=== PATIENT | male | born 1960 | race Caucasian/White ===

== ENCOUNTER 2016-08-24 18:27 | Emergency (ER) | payer OTHER ==
[2016-08-24] MEDS ORDERED: HYDROmorphone 2 MG/1 ML ONE (18:45)
[2016-08-24] MEDS ORDERED: HYDROmorphone 2 MG/1 ML IVP ONE (18:47)
[2016-08-24] MEDS ORDERED: Sodium Chloride 0.9% 1,000 ML PRIMARY IV ONE (18:48)
[2016-08-24] MEDS ORDERED: ONDANSETRON 4 MG/2 ML VIAL IVP ONE (18:52)
[2016-08-24] MEDS ORDERED: MIDAZOLAM 5 MG/1 ML IVP ONE (18:58)
--- NOTE | 2016-08-24 20:55 | DI ---
XR SHOULDER MIN 2VW,08/24/2016 6:36 PM: Clinical History: Left shoulder injury. Previous Exam: None at this facility. Findings: 2 views of the left shoulder are obtained, and demonstrate an anterior dislocation of the left glenoh umeral joint. The humeral head lies anterior inferior to the left glenoid. The adjacent left lung and chest wall are unremarkable. Impression: Anterior dislocation of the left glenohumeral joint.
--- NOTE | 2016-08-24 20:59 | DI ---
XR SHOULDER 1VW,08/24/2016 7:02 PM: Clinical History: Status post left shoulder reduction. Previous Exam: None at this facility. Findings: A single anterior view of the left shoulder is obtained, and demonstrates anatomic alignment. There i s no definite fracture identified however, there is some irregularity of the inferior margin of the l eft glenoid. Impression: 1. Anatomic reduction. 2. Possible fracture of the inferior glenoid would be consistent with a Bankart lesion.
[2016-08-24 21:09] VITALS: TEMP 96.9
[2016-08-24 21:26] VITALS: RESP 16
--- NOTE | 2016-08-25 00:33 | PDOC ---
Shoulder Injury/Pain HPI - General Chief Complaint: Upper Extremity Problem/Injury Stated Complaint: POSSIBLE DISLOCATED LEFT SHOULDER Date Seen by Provider: 08/24/16 Time Seen by Provider: 18:30 Source: POSITIVE: Patient Exam Limitations: POSITIVE: No limitations Nurse's Notes Reviewed & Considered: Yes - History of Present Illness Initial Comments: The patient is a 56-year-old male. 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 He has since had pain to his left shoulder. Patient states he has had a rotator cuff surgery to his right shoulder in the past. No paresthesias or sensory, motor or vascular symptoms. He denies any other injury. Have you received a tetanus shot in the past 10 years?: Yes Location: Left Shoulder Timing: REPORTS: Abrupt Duration: 1 hour Severity: Moderate Quality: REPORTS: "Pain" Context: REPORTS: Fall Associated Symptoms: REPORTS: Unable to Move Shoulder (Due to pain). DENIES: Weakness, Bruising, Not Using Arm, Tingling, Numbness, Other Any Prior Injuries Related to Current Complaint?: No - Patient Home Medications Home Medications: Home Medications Hydrocodone Bit/Acetaminophen [[place] 10-325 Tablet] 1 tab PO Q6H PRN #15 tab 11/05 - Patient Allergies Allergies/Adverse Reactions: Allergies Allergy/AdvReac Type Severity Reaction Status Date / Time No Known Allergies Allergy Verified 08/24/16 18:35 Past Medical History - heen HEENT History: Denies History Cardiovascular History: Hypertension Respiratory History: Other (please comment) Additional Respiratory History: Hx of exterminator termite smoker. Gastrointestinal History: Other (please comment) Additional Gastrointestinal History: Hx of hernia repair as a child--pt. states he doesnt remember where the hernia was at he just remembers have a hernia repair. Genitourinary History: Denies History Endocrine History: Denies History Musculoskeletal History: Back Pain, Other (please comment) Additional Musculoskeletal History: Hx several orthopaedic repairs: Bilateral knee repairs--no hardware. Right shoulder repair--no hardware. Left forearm repair--hardware required however removed at a later date. Back pain from back injury. Neurological History: Denies History Blood Disorders: Denies History Psychiatric History: Denies History Male Reproductive History: Denies History In Past Year Been Physically Harmed or Verbally Threatened: No History of MDRO: Unknown Tobacco Use: Current Every Day Smoker Alcohol Use: Occasionally Substance Use Type: None Previous Surgical History: Yes Type / Date of Surgery: See above Past Medical History Reviewed: Reviewed - No Changes ROS - Limitations ROS Limitations: No Limitations Constitution: REPORTS: Denies Symptoms Cardiovascular: REPORTS: Denies Cardiac Symptoms Respiratory: REPORTS: Denies Resp Symptoms Neurological: REPORTS: Denies Neuro Symptoms Gastrointestinal: REPORTS: Denies GI Symptoms Musculoskeletal: REPORTS: Joint Pain (Left shoulder), Recent Injury (As above) Genitourinary: REPORTS: Denies Symptoms Eyes: REPORTS: Denies Symptoms ENT: REPORTS: Denies Symptoms Skin: REPORTS: Denies Skin Symptoms Lympathic: REPORTS: Denies Lympathic Symptoms Immunologic: POSITIVE: Denies Symptoms Psychiatric: POSITIVE: Denies Psych Symptoms Shoulder Injury/Pain Exam - General Appearance General Appearance: POSITIVE: Alert, Cooperative, No Acute Distress. NEGATIVE: No Evidence of Trauma (Deformity left shoulder with loss of deltoid prominence) - Upper Extremity Shoulder: POSITIVE: Soft-Tissue Tenderness, Bony Tenderness, Anterior Fullness, Limited ROM, Held in Adduction, See Diagram. NEGATIVE: Swelling, Ecchymosis, Clavicular Deformity, AC Drop-Off Upper Extremity: POSITIVE: Uninjured Below Shoulder Neuro/Vascular: POSITIVE: Sensation Normal, Motor Normal, No Vascular Compromise Skin: POSITIVE: Warm, Dry - HEENT HEENT: POSITIVE: Head Inspection Nml, Eyes Inspection Nml, Ears Inspection Nml, Nose Inspection Nml, Oral/Dental Inspect. Nml, Pharynx Inspect. Nml, PERRL, EOMI - Neck / Back Neck/Back: POSITIVE: Normal Inspection, Non-Tender, Painless ROM - Respiratory / CVS Respiratory / CVS: POSITIVE: Chest Non Tender, No Ecchymosis, Breath Sounds Normal, No Respiratory Distress, Heart Sounds Normal, Regular Rate/Rhythm Peripheral Pulses: Radial (R): 2+, Radial (L): 2+ - Abdomen Abdomen: Soft: (All Quadrants), Normal Bowel Sounds: (All Quadrants), Denies Tenderness: (All Quadrants), No Splenomegaly: (All Quadrants), No Hepatomegaly: (All Quadrants), No Guarding: (All Quadrants), No Rebound: (All Quadrants), No Palpable Pulse: (All Quadrants), No Palpabale Mass: (All Quadrants), No Distention: (All Quadrants), No Rigidity: (All Quadrants) Procedure - Procedure Sedation 's Name: Geoffrey Terrazzo Finisher Applied: Yes Rhythm: Sinus Rhythm Oxygen Delivery Method: Nasal Cannula Oxygen Flow Rate: 4 Continuous Pulse Ox: Yes Patent IV Line (s): Yes Patient Tolerated Procedure: Good Comment: Left anterior glenohumeral shoulder dislocation reduced under conscious sedation. Patient placed on vein access technician and had a good patent IV. Supplemental oxygen with nasal cannula applied. Patient given 2 mg of Dilaudid IV followed by 2 mg of Versed IV. Patient achieved good sedation and muscle relaxation and the shoulder dislocation was easily reduced on first attempt. Post reduction shoulder x-ray verified good reduction. Possible Bankart lesion. Shoulder immobilizer placed. - Reduction Time of Reduction: 18:50 Location of Reduction:: Left shoulder, anterior glenohumeral dislocation. Pre-Proc Neuro Vasc Exam: Normal Conscious Sedation: Yes (see conscious sedation note) Method of Reduction: POSITIVE: Manipulation Reduction Attempts: 1 Post Joint Reduction Film: Joint Reduced (Possible Bankart lesion noted post reduction) Post Reduction Neuro Vasc Exam: POSITIVE: Normal Sling Applied / Immobilizer Applied: Yes (shoulder immobilizer applied) Images - Complete Complete: 1 - Area of pain and deformity; left anterior glenohumeral shoulder dislocation Shoulder Pain/Injury Progress - Results Reviewed by me Xrays/CTs/US Reviewed by me: Yes Discussed with Radiologist: Yes Radiology Findings: Prereduction x-ray of left shoulder shows left anterior glenohumeral shoulder dislocation. Postreduction x-ray shows good reduction with possible Bankart lesion noted by the radiologist. - Patient's Progress Pain Medication Addressed: POSITIVE: Yes (Patient discharged with a prescription of hydrocodone/APAP, one every 6 hours as necessary for pain) School/Work Release Addressed: POSITIVE: Yes (2 wear shoulder immobilizer for 10 -14 days; to follow-up with orthopedics at that time.) Re-Examine Time:: 20:20 Re-Examine Comment: Shoulder dislocation successfully reduced. Minimal discomfort on discharge. Patient observed in the emergency room until 2019 and patient completely alert and oriented with normal vital signs at that time. Patient is called a friend to pick him up and drive him home. Status: POSITIVE: Improved, Re-Examined - Consult Counseled: POSITIVE: Patient, RE: Radiology Results, RE: DX, RE: Need for F/U Patient Care Time - Estimated PCT Patient Care Time (In Minutes): 60 Vital Signs - Recent Vital Signs Vital Signs: Vital Signs (Last 8 hours) Temp Pulse Pulse Resp BP BP Pulse Ox 08/24/16 20:51 102 H 16 128/97 92 08/24/16 18:27 96.9 F 80 20 173/123 96 - VS Reviewed Vital Signs Reviewed: Yes Discharge Clinical Impression: Dislocation of shoulder joint Discharge Disposition: Discharged to Home Condition: Good Prescriptions / Orders: Hydrocodone Bit/Acetaminophen [[place] 10-325 Tablet] 1 tab PO Q6H PRN #15 tab PRN Reason: Pain Patient Instructions Given at Discharge: Shoulder Dislocation (ED) Additional Instructions: You have had dislocated your left shoulder, and we put the shoulder back in joint in the emergency room. Please wear shoulder immobilizer for 7-10 days. Follow-up in the orthopedic clinic for reevaluation in 7-10 days. [place], one every 6 hours as necessary for pain. Return anytime if condition worsens in any way. Follow Up With: NONE,NONE [Primary Care Provider] - (Instructions as above. Return here anytime if condition worsens. Follow-up in the orthopedic clinic in 7-10 days.)
== END 2016-08-24 20:51 | disposition home or self-care (01) ==
LOC: ER 18:27
DX: S43.015A Anterior dislocation of left humerus, initial encounter (principal); W00.0XXA Fall on same level due to ice and snow, initial encounter
CPT/HCPCS: 23650; 73020; 73030; 96374; 96375; 99283; J1170; J2250; J2405; J7030